=== PATIENT | female | born 1985 | race Two or more races ===

== ENCOUNTER 2019-01-25 20:13 | Emergency (ER) | payer MEDICAID ==
[~2019-01-25] VITALS: Ht 167.6 cm; Wt 61.6 kg
[2019-01-25 20:21] VITALS: BP 120/51; PULSE 84; RESP 20; Ht 167.6 cm; Wt 61.6 kg
[2019-01-25] MEDS ORDERED: ACETAMINOPHEN 500 MG TAB PO STA (20:32)
--- NOTE | 2019-01-25 20:32 | ERD ---
ER Documentation Chief Complaint Chief Complaint 11 weeks preg. vag bleed today. HPI This is a 33-year-old female presents emergency department with complaints of vaginal bleeding today. Stated that she change to soak pads in the last few hours. Stated that she is 11 weeks . She does not know the name of her OB. LMP: 11/17/2017. TRACY: 08/21/2010. A0. Denies headache, head injury, loss of consciousness, dizziness, neck pain, neck stiffness, throat pain, difficulty swallowing, difficulty breathing lying flat, shoulder pain, chest pain, back pain, abdominal pain, nausea, vomiting, constipation, diarrhea, urinary symptoms, loss of bowel and bladder control, trauma, injury, falls, difficulty walking due to pain, numbness or tingling sensation, calf pain, recent travel, recent major surgery in the last 3 weeks, calf pain, recent long travel, recent exposure to any illness, recent antibiotic use in the last 3 months, fever, chills, seizures. Past medical history: Surgical history: Social: Denies smoking, use of alcoholic beverages, use of illegal drugs. ROS All systems reviewed and are negative except as per history of present illness. Medications Home Meds Active Scripts Cephalexin* (Keflex*) 500 Mg Capsule, 500 MG PO TID for 7 Days, CAP Prov:JUAN MJENNIFERMOOKIE F 01/25/19 Vit No.124/Iron/FA ( Vitamin Tablet) 1 Each Tablet, 1 EACH PO DAILY for 30 Days, TAB Prov:PASILABANJORGEAR F 01/25/19 Acetaminophen* (Tylophen*) 500 Mg Capsule, 1 CAP PO Q6H PRN for PAIN AND OR ELEVATED TEMP, #20 CAP Prov:PASILABAN,JORGEAR F 01/25/19 Allergies Allergies: Coded Allergies: No Known Drug Allergies (Verified Allergy, Unknown, 01/25/19) Physical Exam Vitals Vital Signs Date Temp Pulse Resp B/P (MAP) Pulse Ox O2 O2 Flow FiO2 Time Delivery Rate 01/25/19 97.6 84 20 120/51 98 20:21 (74) Physical Exam Const: No acute distress Head: Atraumatic Eyes: Normal Conjunctiva ENT: Normal External Ears, Nose and Mouth. Neck: Full range of motion. No meningismus. Resp: Clear to auscultation bilaterally Cardio: Regular rate and rhythm, no murmurs Abd: Soft, non tender, non distended. Normal bowel sounds. Negative Rocha sign. Negative Aissatou sign ([id number]). Negative psoas sign. Negative Rovsing sign. No CVA tenderness. Ambulatory with steady gait without pain to abdomen. Skin: No petechiae or rashes. Color appears normal for ethnicity. No skin tenting. No signs of dehydration. Back: No midline or flank tenderness Ext: No cyanosis, or edema Neur: Awake and alert. No neurological deficit. Psych: Normal Mood and Affect Result Diagram: 01/25/19203101/25/192114 Results 24 hrs Laboratory Tests Test 01/25/19 20:32 01/25/19 21:00 01/25/19 21:15 White Blood Count 8.7 10^3/ul Red Blood Count 3.60 10^6/ul Hemoglobin 9.9 g/dl Hematocrit 30.3 % Mean Corpuscular Volume 84.2 fl Mean Corpuscular Hemoglobin 27.5 pg Mean Corpuscular 32.7 g/dl Hemoglobin Concent Red Cell Distribution Width 15.9 % Platelet Count 191 10^3/UL Mean Platelet Volume 9.8 fl Immature Granulocytes % 0.200 % Neutrophils % 67.2 % Lymphocytes % 26.4 % Monocytes % 5.5 % Eosinophils % 0.5 % Basophils % 0.2 % Nucleated Red Blood Cells % 0.0 /100WBC Immature Granulocytes # 0.020 10^3/ul Neutrophils # 5.9 10^3/ul Lymphocytes # 2.3 10^3/ul Monocytes # 0.5 10^3/ul Eosinophils # 0.0 10^3/ul Basophils # 0.0 10^3/ul Nucleated Red Blood Cells # 0.0 10^3/ul Urine Color RED Urine Clarity CLOUDY Urine pH 6.0 Urine Specific [place] 1.025 Urine Ketones NEGATIVE mg/dL Urine Nitrite NEGATIVE mg/dL Urine Bilirubin NEGATIVE mg/dL Urine Urobilinogen NEGATIVE mg/dL Urine Leukocyte Esterase NEGATIVE Elizabeth/ul Urine Microscopic RBC > 182 /HPF Urine Microscopic WBC > 182 /HPF Urine Bacteria FEW /HPF Urine Hemoglobin 2+ mg/dL Urine Glucose NEGATIVE mg/dL Urine Total Protein 2+ mg/dl Sodium Level 137 mmol/L Potassium Level 3.9 mmol/L Chloride Level 104 mmol/L Carbon Dioxide Level 26 mmol/L Anion Gap 7 Blood Urea Nitrogen 10 mg/dl Creatinine 0.43 mg/dl Est Glomerular Filtrat > 60 mL/min Rate mL/min Glucose Level 93 mg/dl Calcium Level 9.6 mg/dl Total Bilirubin 0.0 mg/dl Direct Bilirubin 0.00 mg/dl Indirect Bilirubin 0.0 mg/dl Aspartate Amino 17 IU/L Transf (AST/SGOT) Alanine 13 IU/L Aminotransferase (ALT/SGPT) Alkaline Phosphatase 44 IU/L Total Protein 7.1 g/dl Albumin 3.9 g/dl Globulin 3.20 g/dl Albumin/Globulin Ratio 1.21 Lipase 98 U/L Beta HCG, Quantitative 677416.0 mIU/ml Current Medications Medications Dose Sig/Kassidy Start Time Status Last (Trade) Ordered Route PRN Stop Time Admin Dose Reason Admin 500 mg ONCE STAT 01/25/19 DC Acetaminophen PO 20:32 (Tylenol 01/25/19 20:36 Tab) Procedures/MDM Diagnostic tests: Urinalysis: UTI. Culture urine: Sent. HCG quantitative: 425963.0 Type and Rh: A Positive. Blood works: Reviewed. OB ultrasound: Single live intrauterine with an estimated gestational age of 10 weeks and 5 days, based on ultrasound measurements. Large area of subchorionic hemorrhage. Close follow-up is recommended. Treatment: Tylenol p.o. Re-evaluation: Denies headache, chest pain, back pain, pelvic pain, abdominal pain. No abdominal tenderness. No CVA tenderness. Denies vaginal bleeding. No signs of hemorrhaging. Differential diagnosis I have low suspicion for ectopic , abdominal , hemorrhaging, cholecystitis, diverticulitis, bowel obstruction, mesenteric ischemia, appendicitis, nephrolithiasis, septic stone, obstructing kidney stone, renal failure, anemia. Final diagnosis: Vaginal Bleeding in . UTI in . Prescription: Tylenol. vitamins. Follow-up with OB in the next 24-48 hours. Come back here in the emergency department for any new symptoms or any worsening symptoms. All questions and concerns were answered. Patient and family members verbalized understanding and agreed with plan of care. Hemodynamically stable on discharge. Departure Diagnosis: Primary Impression: Vaginal bleeding in patient at less than 20 weeks gestation Additional Impression: UTI in Condition: Stable Additional Instructions: Follow-up with OB in the next 24-48 hours. Come back here in the emergency department for any new symptoms or any worsening symptoms. MOOKIE MOJICA Jan 25, 2019 20:32
[2019-01-25] MEDS ORDERED: PREN-93 PO (22:34)
[2019-01-25] MEDS ORDERED: ACET500C5 PO (22:34)
[2019-01-25] MEDS ORDERED: CEPH-443 PO (22:37)
== END 2019-01-25 22:58 | disposition home or self-care (01) ==
LOC: FTE 20:13
DX: O20.9 Hemorrhage in early pregnancy, unspecified (principal); O23.41 Unspecified infection of urinary tract in pregnancy, first trimester; Z3A.10 10 weeks gestation of pregnancy
CPT/HCPCS: 36415; 76801; 80053; 81001; 83690; 84702; 85025; 86900; 86901; 87086; Z7502; Z7610